=== PATIENT | female | born 1950 | race Caucasian/White ===

== ENCOUNTER 2024-05-29 08:34 | Outpatient (CLI) | payer MEDICARE, SELFPAY ==
--- NOTE | ~2024-05-29 | MM_ITS ---
EXAMINATION: MM screening adiel BI w unique HISTORY: Screening mammogram TECHNIQUE: Craniocaudal and mediolateral oblique 3-D tomosynthesis images were obtained and synthetic 2-D images were generated. CAD analysis was submitted and interpreted. COMPARISON: No prior mammogram is available for comparison at this institution. BREAST PARENCHYMAL COMPOSITION:Not Dense. There are scattered areas of fibroglandular density. FINDINGS: There is a subtle asymmetric density at the outer left breast. No parenchymal abnormality t he right breast. No suspicious calcifications. IMPRESSION: Subtle asymmetry density outer left breast. Spot compression views and possibly ultrasound are recom mended for further evaluation. BI-RADS Category 0: Incomplete: Needs additional imaging evaluation. Reviewed, dictated and finalized at location . CTOR OF TRANSPORTATION IMPRESSION: Subtle asymmetry density outer left breast. Spot compression views and possibl y ultrasound are recommended for further evaluation. BI-RADS Category 0: Incomplete: Needs additional imaging evaluation.
--- OUTSIDE RECORDS SUMMARY | 2024-05-29 08:56 | XMS_ITS | Clinical Summary ---
Author Organization [facility] Address [address] [place] [id number] Care Team Providers Care Sound Effects Technician Name Role Phone Unavailable Primary Care Provider Unavailabl e Social History Tobacco Use Types Packs/Day Years Used Date Smoking Tobacco: Never Assessed Comments Unknown Sex and Gender Information Value Date Recorded Sex Assigned at Not on file Legal Sex Female 6:55 PM CDT Gender Identity Not on file Sexual Orientation Not on file Plan of Treatment Health Maintenance Due Date Last Done Comments Colorectal Cancer Screening Colonoscopy (10 Years) 1952 Hepatitis C 1970 DTaP, Tdap and Td Vaccines ( 1 - Tdap) 09/21/1971 Mammogram Screening 1992 Zoster Vaccines (1 of 2) 2002 Dexa Scan (General) 2017 Pneumococcal Vaccine: 65+ Ye ars (1 of 1 - PCV) 2017 COVID-19 Vaccine (2023-2 5 season) 2023 Influenza Adult (#1) 2023 RSV Immunization or 60+ Years (1 - 1-dose 75+ series) 09/21/2027 Meningococcal B Vaccine Aged Out No l onger eligible based on patient's age to complete this topic Meningococcal Vaccine Aged Out No jelani pancho eligible based on patient's age to complete this topic RSV Immunizations Under 20 Months Aged Out No longer eligible based on patient's age to complete this topic
--- OUTSIDE RECORDS SUMMARY | 2024-05-29 08:56 | XMS_ITS | Data Portability ---
Author Organization [facility], Main Office Address [address] [place] [address] Care Team Providers Care Health Administration Teacher Name Role Phone TESS ADAMS Primary Care Provider TESS ADAMS Referring Provider MESSI BOYCE Orthopedic Surgeon Assessment Encounter Date Assessment Date Assessment LastModified by Organization Details LastModified Time 01/19/2023 01/19/2023 HPI: Patient returns. She is here for a 5 year routine x-ray surveillance of both her knees. We did her right total knee in 2017 and the left in 2016 both knees are doing very well for her. She is having no complaints of pain in either knee. Physical exam: 72-year-old female alert pleasant. She has no effusion in either knee. Range of motion is from 0-140 degrees bilaterally. She has excellent stability in both flexion extension of both knees. No increased swelling in either lower extremity. Impression: Patient is doing very well with her total knee arthroplasties. She has excellent range of motion and stability in both knees. She is very happy with the results. We will see her back in 5 years for routine x-ray surveillance or sooner if she has problems. Not available 01/19/2023 12:38:45 05/16/2023 05/16/2023 HPI: Patient returns. Her right hip is bothering her a lot more at this point. She has been on meloxicam which she does not feel helps. She has pain in the groin of the right hip with activities as well as weight-bearing and walking. She also gets pain that radiates to the right buttocks. Typically this pain occurs when she is moving the hip. She had x-rays done from last November which showed moderate to moderately severe type 2 osteoarthritis. Physical exam: 72-year-old female she is 5 ft 3 195 lb BMI is 34.5. She walks with a minimal limp. She has flexion of the right hip to 110 with mild groin pain. External rotation is to 30 and internal rotation is to 0. She has pzov-jv-lgejbms e pain in the groin as well as in the right buttocks with internal rotation. Stinchfield maneuver is very painful in the groin as well as right buttock area. She has no numbness or tingling going down the legs. No swelling in either lower extremity. Impression: Patient appears to be having symptoms were emanating from her arthritic right hip. I think the buttock pain is referred for pain from the hip given the fact that it is reproduced with provocative maneuvers of the hip. She is wanting to discuss surgical options with the hip. We will work on referring her for surgical consultation. I will see her back as needed. 20 minutes was spent in treatment patient more than half this lwjh-jr-hkmg conversation. I did discuss with her using a cane if her symptoms become worse and she does have a cane at home. She does not feel the meloxicam solving so she is going to just take oqow-ruy-qcdebu r Motrin 800 mg 2 or 3 times a day which seems to work better for her. She also uses Tylenol and tramadol p.r.n. as well. Not available 05/16/2023 14:17:29 Plan of Treatment Reminders Order Date Submit Date Provider Last Modified By Organization Details Last Modified Time Details Appointments Any 15 2024 10:00A M Tess Adams MD Not available Not available Not available Lab CMP, serum or plasma 2023 [facility] (Lab), [address] [place], [address], 01/14/2024 19:47:39 lipid panel, serum 2023 024 [facility] (Lab), [address] [place], [address], 01/14/2024 19:47:42 CBC w/ auto diff 2023 024 [facility] (Lab), [address] [place], [address], 01/14/2024 19:08:07 vitamin D, 25-hydrox y, total, serum 2023 024 [facility] (Lab), [address] [place], [address], 01/14/2024 20:48:26 Referral None recorded. Procedures None recorded. Surgeries None recorded. Imaging MAMMO, screening , digital, bilateral - Please call patient to schedule. Due on or around 4 2023 [email or web address] [facility], [address], [place], [address], 02/18/2024 18:58:38 bone density - Please call patient to schedule. 2023 024 [email or web address] [facility], [address], [place], [address], 02/13/2024 08:37:22 XR, knee 2022 023 [email or web address] [facility] [place], [facility], [place], [address], 01/20/2023 12:49:57 Medication Orders diclofena c sodium 75 mg tablet,de layed release 2023 024 [facility] #[id number], [address], [place], [place], [id number], 01/14/2024 09:17:59 cephalexi n 500 mg capsule 2023 024 [facility] #[id number], [address], [place], [place], [id number], 01/14/2024 09:22:23 tramadol 50 mg tablet 2023 024 eda wise [facility] #[id number], [address], [place], [place], [id number], 09/13/2023 10:59:15 lisinopri l 20 mg tablet 2023 024 [facility] #[id number], [address], [place], [place], [id number], 05/15/2023 10:43:56 Patient TargetsNo targets recorded. Patient Instructions Encounter Date Encounter Id Patient Instructions Last Modified By Organization Details Last Modified Time 01/14/2024 [id number] dementia rating scale-2* Not available 01/14/2024 11:29:37 depression screening* Not available 01/14/2024 17:17:33 alcohol misuse* Not available 01/14/2024 17:17:32 Timed Up and Go test (TUG)* Not available 01/14/2024 17:17:33 multi-dimensiona l health assessment questionnaire* Not available 01/14/2024 17:17:33 Personalized [facility] lt Plan and Screening Recommendations Advance Directives - Do you have one? Yes Advance Directives - Do we have your advance directive on file in your health record? No, please bring in a copy at your earliest convenience Primary Prevention/Interven tion (prevents or decreases the chance of common diseases from occurring) Smoking Risk: Non Smoker Alcohol Misuse Screening: Negative Weight: Appropriate Overwei ght continue your current weight loss efforts try to lose 5% of your body weight try to lose 10% of your body weight try to lose 15% of your body weight Physical activity: Need more exercise/physical activity minimum of 10-20 minutes of activity that causes mild breathlessness/day Nutrition: Good Average Fall Risk (screened today): Low Vaccines Pneumococcal: Ordered Recommended today Recommended today, but you have declined No further needed Influenza: Your next one in the fall of this year Chronic Disease Risks Stroke: Low Risk I have no recommendations Heart Attack: Low risk I have no recommendations Clogging of the Arteries: Low risk I have no recommendations Diabetes: Low Risk I have no recommendations Secondary Prevention/Interven tion (detects treatable diseases before they may cause symptoms, disability, or ) Breast Cancer Screening with mammogram: Cervical/Uterine/Ov eunice Cancer Screening: Osteoporosis Screening: No screening necessary Date Screening Last Performed: 08/2021 Colon Cancer Screening: Colonoscopy Fecal Occult Blood Cologuard (DNA stool test) No screening necessary Date Screening Last Performed: 01/2022 Eye Disease Screening: No Eye exam necessary Dementia Risk: Low I have no recommendations Depression Screening: Negative [email or web address] Not available 01/14/2024 11:04:48 Reason for Referral None Reported. Results Created Date Observation Date Name Description Value Unit Range Abnormal Flag Note LastModifiedBy Organization Detail LastModifiedTime 01/23/2001/22/2023 CBC/C OMPLE TE BLD COUNT W/DIF F white blood cells 6.1 x10'3 /uL 4.2-10 .8 Not Available [facility] (Lab) [address] [place], [address], 01/22/2023 15:58:48 01/23/2001/22/2023 CBC/C OMPLE TE BLD COUNT W/DIF F red blood cells 4.60 x10'6 /uL 3.80-5 .20 Not Available [facility] (Lab) [address] [place], [address], 01/22/2023 15:58:48 01/23/2001/22/2023 CBC/C OMPLE TE BLD COUNT W/DIF F hemoglobin 13.9 g/dL 12.0-1 5.6 Not Available [facility] (Lab) [address] [place], [address], 01/22/2023 15:58:48 01/23/2001/22/2023 CBC/C OMPLE TE BLD COUNT W/DIF F hematocrit 43.1 % 35.7-4 5.7 Not Available [facility] (Lab) [address] [place], [address], 01/22/2023 15:58:48 01/23/2001/22/2023 CBC/C OMPLE TE BLD COUNT W/DIF F mean red cell volume 93.7 fL 82.0-9 9.0 Not Available [facility] (Lab) [address] [place], [address], 01/22/2023 15:58:48 01/23/2001/22/2023 CBC/C OMPLE TE BLD COUNT W/DIF F mean red cell hemoglobin 30.2 pg 27.0-3 3.0 Not Available [facility] (Lab) [address] [place], [address], 01/22/2023 15:58:48 01/23/2001/22/2023 CBC/C OMPLE TE BLD COUNT W/DIF F mean RBC HGB concentratio n 32.3 g/dL 31.0-3 6.0 Not Available [facility] (Lab) [address] [place], [address], 01/22/2023 15:58:48 01/23/2001/22/2023 CBC/C OMPLE TE BLD COUNT W/DIF F red cell distribution width 13.6 % 11.8-1 5.5 Not Available [facility] (Lab) [address] [place], [address], 01/22/2023 15:58:48 01/23/2001/22/2023 CBC/C OMPLE TE BLD COUNT W/DIF F platelets 194 x10'3 /uL 150-40 0 Not Available [facility] (Lab) [address] [place], [address], 01/22/2023 15:58:48 01/23/2001/22/2023 CBC/C OMPLE TE BLD COUNT W/DIF F mean platelet volume 12.5 fL 9.0-12 .4 high Not Available [facility] (Lab) [address] [place], [address], 01/22/2023 15:58:48 01/23/2001/22/2023 CBC/C OMPLE TE BLD COUNT W/DIF F neutrophils 66.7 % 39.0-7 2.0 Not Available [facility] (Lab) [address] [place], [address], 01/22/2023 15:58:48 01/23/2001/22/2023 CBC/C OMPLE TE BLD COUNT W/DIF F lymphocytes 18.8 % 16.0-4 7.0 Not Available [facility] (Lab) [address] [place], [address], 01/22/2023 15:58:48 01/23/2001/22/2023 CBC/C OMPLE TE BLD COUNT W/DIF F monocytes 10.3 % 5.0-12 .0 Not Available [facility] (Lab) [address] [place], [address], 01/22/2023 15:58:48 01/23/2001/22/2023 CBC/C OMPLE TE BLD COUNT W/DIF F eosinophils 3.6 % 1.0-7. 0 Not Available [facility] (Lab) [address] [place], [address], 01/22/2023 15:58:48 01/23/2001/22/2023 CBC/C OMPLE TE BLD COUNT W/DIF F basophils 0.3 % 0.0-2. 0 Not Available [facility] (Lab) [address] [place], [address], 01/22/2023 15:58:48 01/23/2001/22/2023 CBC/C OMPLE TE BLD COUNT W/DIF F immature granulocytes 0.3 % 0.00-0 .50 Not Available [facility] (Lab) [address] [place], [address], 01/22/2023 15:58:48 01/23/20 23 01/22/2023 CBC/C OMPLE TE BLD COUNT W/DIF F neutrophils, absolute count 4.09 x10'3 /uL 1.5-8. 0 Not Available [facility] (Lab) [address] [place], [address], 01/22/2023 15:58:48 01/23/20 23 01/22/2023 CBC/C OMPLE TE BLD COUNT W/DIF F lymphocytes, absolute count 1.15 x10'3 /uL 1.07-3 .43 Not Available [facility] (Lab) [address] [place], [address], 01/22/2023 15:58:48 01/23/2001/22/2023 CBC/C OMPLE TE BLD COUNT W/DIF F monocytes, absolute count 0.63 x10'3 /uL 0.29-0 .99 Not Available [facility] (Lab) [address] [place], [address], 01/22/2023 15:58:48 01/23/20 23 01/22/2023 CBC/C OMPLE TE BLD COUNT W/DIF F eosinophils, absolute count 0.22 x10'3 /uL 0.02-0 .53 Not Available [facility] (Lab) [address] [place], [address], 01/22/2023 15:58:48 01/23/20 23 01/22/2023 CBC/C OMPLE TE BLD COUNT W/DIF F basophils, absolute count 0.02 x10'3 /uL 0.01-0 .08 Not Available [facility] (Lab) [address] [place], [address], 01/22/2023 15:58:48 01/23/20 23 01/22/2023 CBC/C OMPLE TE BLD COUNT W/DIF F immature granulocytes ,absolute 0.02 x10'3 /uL 0.00-0 .05 Not Available [facility] (Lab) [address] [place], [address], 01/22/2023 15:58:48 01/23/20 23 01/22/2023 CBC/C OMPLE TE BLD COUNT W/DIF F nucleated red blood cells 0.0 % -0 Not Available [facility] (Lab) [address] [place], [address], 01/22/2023 15:58:48 01/23/2001/22/2023 CBC/C OMPLE TE BLD COUNT W/DIF F NRBC# 0.00 x10'3 /uL Not Available [facility] (Lab) [address] [place], [address], 01/22/2023 15:58:48 01/23/2001/22/2023 VITAM IN D 25-HY DROXY [id number] 31.3 NG/mL 30-100 Vitam in D Statu s: Defic ient: <20 ng/mL Insuf ficie nt: 20-29 ng/mL Suffi cient : 30-10 0 ng/mL Not Available [facility] (Lab) [address] [place], [address], 01/22/2023 16:52:18 01/23/2001/22/2023 COMPR EHENS NIKA METAB OLIC PANEL sodium 140 mmol/ L 137-14 5 Not Available [facility] (Lab) [address] [place], [address], 01/22/2023 16:53:45 01/23/2001/22/2023 COMPR EHENS NIKA METAB OLIC PANEL potassium 4.0 mmol/ L 3.5-5. 1 Not Available [facility] (Lab) [address] [place], [address], 01/22/2023 16:53:45 01/23/20 23 01/22/2023 COMPR EHENS NIKA METAB OLIC PANEL chloride 106 mmol/ L 98-107 Not Available [facility] (Lab) [address] [place], [address], 01/22/2023 16:53:45 01/23/20 23 01/22/2023 COMPR EHENS NIKA METAB OLIC PANEL carbon dioxide 31 mmol/ L 22-30 high Not Available [facility] (Lab) [address] [place], [address], 01/22/2023 16:53:45 01/23/20 23 01/22/2023 COMPR EHENS NIKA METAB OLIC PANEL anion gap 7.0 mmol/ L 14-22 low Not Available [facility] (Lab) [address] [place], [address], 01/22/2023 16:53:45 01/23/2001/22/2023 COMPR EHENS NIKA METAB OLIC PANEL glucose 101 mg/dL 70-99 high Not Available [facility] (Lab) [address] [place], [address], 01/22/2023 16:53:45 01/23/20 23 01/22/2023 COMPR EHENS NIKA METAB OLIC PANEL BUN 13 mg/dL 8-19 Not Available [facility] (Lab) [address] [place], [address], 01/22/2023 16:53:45 01/23/20 23 01/22/2023 COMPR EHENS NIKA METAB OLIC PANEL creatinine 0.60 mg/dL 0.66-1 .25 low Not Available [facility] (Lab) [address] [place], [address], 01/22/2023 16:53:45 01/23/20 23 01/22/2023 COMPR EHENS NIKA METAB OLIC PANEL GFR >60 Refer ence Range : Prospect ge GFR Healt hy Adult : >60 mL/mi n/1.7 3 m2 Chron ic Kidne y Disea se: 15-60 mL/mi n/1.7 3 m2 Kidne y Failu re: <15/m L/min /1.73 m2 www.n iddk. nih.g ov The MDRD study equat ion has not been valid ated in child brandy <18 years of age; pregn ant women ; the elder ly >85 years of age; or in some racia l or ethni c subgr oups, such as Hispa nics. Outsi de the valid ated steve eters , estim ated GFR is less accur ate, requi ring clini adonis judgm ent on a case- by-ca se basis . Clini adonis inter preta tion for other races and ages must be made by the clini julio c. The MDRD study equat ion has not been valid ated for the evalu ation of serum creat inine relat ed to nutri luciana l statu s or medic ation usage . For perso ns <18 years of age, a pedia tric GFR calcu lator is avail able on the [facility] websi te: https ://cinda w.kellie warreny.o rg/pr ofess ional s/kdo qi/gf r_cal culat or Not Available [facility] (Lab) [address] [place], [address], 01/22/2023 16:53:45 01/23/20 23 01/22/2023 COMPR EHENS NIKA METAB OLIC PANEL alkaline phosphatase 100 U/L 38-126 Not Available [facility] (Lab) [address] [place], [address], 01/22/2023 16:53:45 01/23/20 23 01/22/2023 COMPR EHENS NIKA METAB OLIC PANEL alanine aminotransfe rase 24 U/L 0-35 Not Available [facility] (Lab) [address] [place], [address], 01/22/2023 16:53:45 01/23/20 23 01/22/2023 COMPR EHENS NIKA METAB OLIC PANEL aspartate aminotransfe rase 22 U/L 15-37 Not Available [facility] (Lab) [address] [place], [address], 01/22/2023 16:53:45 01/23/20 23 01/22/2023 COMPR EHENS NIKA METAB OLIC PANEL bilirubin, total 0.40 mg/dL 0.20-1 .30 Not Available [facility] (Lab) [address] [place], [address], 01/22/2023 16:53:45 01/23/20 23 01/22/2023 COMPR EHENS NIKA METAB OLIC PANEL calcium 8.8 mg/dL 8.4-10 .2 Not Available [facility] (Lab) [address] [place], [address], 01/22/2023 16:53:45 01/23/20 23 01/22/2023 COMPR EHENS NIKA METAB OLIC PANEL total protein 6.1 g/dL 6.3-8. 2 low Not Available [facility] (Lab) [address] [place], [address], 01/22/2023 16:53:45 01/23/20 23 01/22/2023 COMPR EHENS NIKA METAB OLIC PANEL albumin 3.3 g/dL 3.0-4. 4 Not Available [facility] (Lab) [address] [place], [address], 01/22/2023 16:53:45 01/23/20 23 01/22/2023 COMPR EHENS NIKA METAB OLIC PANEL globulin 2.8 g/dL 2.6-4. 2 Not Available [facility] (Lab) [address] [place], [address], 01/22/2023 16:53:45 01/23/20 23 01/22/2023 COMPR EHENS NIKA METAB OLIC PANEL A/G ratio 1.2 ratio 1.0-2. 0 Not Available [facility] (Lab) [address] [place], [address], 01/22/2023 16:53:45 01/23/20 23 01/22/2023 LIPID PANEL cholesterol 145 mg/dL 140-19 9 [facility] RUDOLPH NSUS RECOM MENDA TION FOR LOYDA STERO L: ADULT CHILD LOW RISK: <200 <170 BORDE RLINE : <200- 239 ----- HIGH RISK: >240 >200 Not Available [facility] (Lab) [address] [place], [address], 01/22/2023 16:53:49 01/23/2001/22/2023 LIPID PANEL triglyceride s 113 mg/dL 0-150 NIH RUDOLPH NSUS REPOR T RECOM MENDA TION FOR TRIGL YCERI FERNIE: ADULT CHILD LOW RISK: <150 ----- BODER LINE: 150-1 99 ----- HIGH RISK: >200 ----- Not Available [facility] (Lab) [address] [place], [address], 01/22/2023 16:53:49 01/23/20 23 01/22/2023 LIPID PANEL HDL cholesterol 37 mg/dL 40- low Not Available [facility] (Lab) [address] [place], [address], 01/22/2023 16:53:49 01/23/20 23 01/22/2023 LIPID PANEL LDL cholesterol, calculated 85 mg/dL 0-130 NIH RUDOLPH NSUS REPOR T RECOM MENDA TIONS FOR LDL: ADULT CHILD LOW RISK <130 <110 (OPTI MAL LDL) <100 ----- BORDE RLINE : 130-1 59 ----- HIGH RISK: >160 >130 A TRIGL YCERI DE RESUL T >400 INVAL IDATE S THE CALCU LATIO N FOR LDL FRACT IONAT ION - THE LDL RESUL T WILL NOT BE REPOR VISHAL. Not Available [facility] (Lab) [address] [place], [address], 01/22/2023 16:53:49 07/12/19 24 07/12/2023 C REACT NIKA PROTE IN,UL TRA SENS C-reactive protein 0.17 mg/dL 0.0-0. 5 Not Available [facility] (Lab) [address] [place], [address], 07/12/2023 11:38:16 07/12/19 24 07/12/2023 RHEUM ATOID FACTO R rf <8.6 IU/mL 0.0-11 .9 Not Available [facility] (Lab) [address] [place], [address], 07/12/2023 11:38:22 07/12/19 24 07/12/2023 CBC/C OMPLE TE BLD COUNT W/DIF F white blood cells 5.5 x10'3 /uL 4.2-10 .8 Not Available [facility] (Lab) [address] [place], [address], 07/12/2023 12:14:08 07/12/19 24 07/12/2023 CBC/C OMPLE TE BLD COUNT W/DIF F red blood cells 4.34 x10'6 /uL 3.80-5 .20 Not Available [facility] (Lab) [address] [place], [address], 07/12/2023 12:14:08 07/12/19 24 07/12/2023 CBC/C OMPLE TE BLD COUNT W/DIF F hemoglobin 13.2 g/dL 12.0-1 5.6 Not Available [facility] (Lab) [address] [place], [address], 07/12/2023 12:14:08 07/12/19 24 07/12/2023 CBC/C OMPLE TE BLD COUNT W/DIF F hematocrit 40.5 % 35.7-4 5.7 Not Available [facility] (Lab) [address] [place], [address], 07/12/2023 12:14:08 07/12/19 24 07/12/2023 CBC/C OMPLE TE BLD COUNT W/DIF F mean red cell volume 93.3 fL 82.0-9 9.0 Not Available [facility] (Lab) [address] [place], [address], 07/12/2023 12:14:08 07/12/19 24 07/12/2023 CBC/C OMPLE TE BLD COUNT W/DIF F mean red cell hemoglobin 30.4 pg 27.0-3 3.0 Not Available [facility] (Lab) [address] [place], [address], 07/12/2023 12:14:08 07/12/19 24 07/12/2023 CBC/C OMPLE TE BLD COUNT W/DIF F mean RBC HGB concentratio n 32.6 g/dL 31.0-3 6.0 Not Available [facility] (Lab) [address] [place], [address], 07/12/2023 12:14:08 07/12/19 24 07/12/2023 CBC/C OMPLE TE BLD COUNT W/DIF F red cell distribution width 13.6 % 11.8-1 5.5 Not Available [facility] (Lab) [address] [place], [address], 07/12/2023 12:14:08 07/12/19 24 07/12/2023 CBC/C OMPLE TE BLD COUNT W/DIF F platelets 178 x10'3 /uL 150-40 0 Not Available [facility] (Lab) [address] [place], [address], 07/12/2023 12:14:08 07/12/19 24 07/12/2023 CBC/C OMPLE TE BLD COUNT W/DIF F mean platelet volume 12.4 fL 9.0-12 .4 Not Available [facility] (Lab) [address] [place], [address], 07/12/2023 12:14:08 07/12/19 24 07/12/2023 CBC/C OMPLE TE BLD COUNT W/DIF F neutrophils 60.8 % 39.0-7 2.0 Not Available [facility] (Lab) [address] [place], [address], 07/12/2023 12:14:08 07/12/19 24 07/12/2023 CBC/C OMPLE TE BLD COUNT W/DIF F lymphocytes 21.4 % 16.0-4 7.0 Not Available [facility] (Lab) [address] [place], [address], 07/12/2023 12:14:08 07/12/19 24 07/12/2023 CBC/C OMPLE TE BLD COUNT W/DIF F monocytes 11.0 % 5.0-12 .0 Not Available [facility] (Lab) [address] [place], [address], 07/12/2023 12:14:08 07/12/19 24 07/12/2023 CBC/C OMPLE TE BLD COUNT W/DIF F eosinophils 6.2 % 1.0-7. 0 Not Available [facility] (Lab) [address] [place], [address], 07/12/2023 12:14:08 07/12/19 24 07/12/2023 CBC/C OMPLE TE BLD COUNT W/DIF F basophils 0.4 % 0.0-2. 0 Not Available [facility] (Lab) [address] [place], [address], 07/12/2023 12:14:08 07/12/19 24 07/12/2023 CBC/C OMPLE TE BLD COUNT W/DIF F immature granulocytes 0.2 % 0.00-0 .50 Not Available [facility] (Lab) [address] [place], [address], 07/12/2023 12:14:08 07/12/19 24 07/12/2023 CBC/C OMPLE TE BLD COUNT W/DIF F neutrophils, absolute count 3.32 x10'3 /uL 1.5-8. 0 Not Available [facility] (Lab) [address] [place], [address], 07/12/2023 12:14:08 07/12/19 24 07/12/2023 CBC/C OMPLE TE BLD COUNT W/DIF F lymphocytes, absolute count 1.17 x10'3 /uL 1.07-3 .43 Not Available [facility] (Lab) [address] [place], [address], 07/12/2023 12:14:08 07/12/19 24 07/12/2023 CBC/C OMPLE TE BLD COUNT W/DIF F monocytes, absolute count 0.60 x10'3 /uL 0.29-0 .99 Not Available [facility] (Lab) [address] [place], [address], 07/12/2023 12:14:08 07/12/19 24 07/12/2023 CBC/C OMPLE TE BLD COUNT W/DIF F eosinophils, absolute count 0.34 x10'3 /uL 0.02-0 .53 Not Available [facility] (Lab) [address] [place], [address], 07/12/2023 12:14:08 07/12/19 24 07/12/2023 CBC/C OMPLE TE BLD COUNT W/DIF F basophils, absolute count 0.02 x10'3 /uL 0.01-0 .08 Not Available [facility] (Lab) [address] [place], [address], 07/12/2023 12:14:08 07/12/19 24 07/12/2023 CBC/C OMPLE TE BLD COUNT W/DIF F immature granulocytes ,absolute 0.01 x10'3 /uL 0.00-0 .05 Not Available [facility] (Lab) [address] [place], [address], 07/12/2023 12:14:08 07/12/19 24 07/12/2023 CBC/C OMPLE TE BLD COUNT W/DIF F nucleated red blood cells 0.0 % -0 Not Available [facility] (Lab) [address] [place], [address], 07/12/2023 12:14:08 07/12/19 24 07/12/2023 CBC/C OMPLE TE BLD COUNT W/DIF F NRBC# 0.00 x10'3 /uL Not Available [facility] (Lab) [address] [place], [address], 07/12/2023 12:14:08 07/12/19 24 07/12/2023 SEDIM ENTAT ION RATE erythrocyte sedimentatio n rate 12 mm/HR 0-20 Not Available [facility] (Lab) [address] [place], [address], 07/12/2023 13:16:10 07/12/19 24 07/13/2023 ANTI- CCP ANTIB ODIES IGG/I GA ccp antibodies IgG/IgA 6 units 0-19 Negat nika <20 Weak posit nika 20 - 39 Moder ate posit nika 40 - 59 Stron g posit nika >59 Perfo rmed at: [facility] [address] [facility], [place] [address] [address]: Zeus altamirano PhD, Phone : [phone] Not Available [facility] (Lab) [address] [place], [address], 07/13/2023 14:13:42 07/12/19 24 07/16/2023 VITALIY BY IFA RFX TITER /NELL MANDO antinuclear antibodies, ifa NEGATI VE Negat nika <1:80 Borde rline 1:80 Posit nika >1:80 ICAP nomnaseem tobias re: AC-0 For more infor matmian n about Hep-2 cell patte rns use ANApa ttern s.org , the offic ial websi te for the Inter natio nal Conse nsus on Antin uclea r Antib darinel (VITALIY) Patte rns (ICAP ). . Speck led cytop lasmi c fluor escen ce is prese nt. The antib odies noted in this patte rn may be assoc iated with, but not restr icted to, prima ry bilia ry cirrh osis (PBC) , polym yosit is and derma tomyo sitis (PM/D M), and/o r syste carin lupus eryth emato augustine (SLE) . Perfo rmed at: [facility] [address], [place] [address] Lab Direc tor: Zues altamirano PhD, Phone : [phone] Not Available [facility] (Lab) [address] [place], [address], 07/16/2023 08:08:58 07/12/19 24 07/23/2023 HLA B 27 DISEA SE ASSOC IATIO N hla-B27 NEGATI VE HLA-B *27 Negat nika B27 allel e inter preta tion for all loci based on IMGT/ HLA datab ase versi on . 0 This test was devel oped and its perfo rmanc e bakari cteri stics deter mined by [employer]. It has not been clear ed or appro margaret by the Food and Drug Admin istra tion. HLA Lab CLIA ID Numbe r [id number] THis test was perfo rmed using Polym erase Chain React ion (PCR) and Seque nce Speci fic Oligo nucle otide Probe s (SSOP ) techn ique. Seque nce Based Typin g (SBT) may be used as a suppl ement al metho d when neces jose eduardo. If you have quest ions, pleas e call HLA custo kristy servi ce at [phone] or email at HLA [email or web address]. Perfo rmed at: 2Q - [facility] [place] [facility] [address] , [place] [address] 3[address] Lab Direc tor: Nida gardiner PhD, Phone : [phone] Not Available [facility] (Lab) [address] [place], [address], 07/23/2023 11:10:19 01/14/2001/14/2024 CBC/C OMPLE TE BLD COUNT W/DIF F white blood cells 6.2 x10'3 /uL 4.2-10 .8 Not Available [facility] (Lab) [address] [place], [address], 01/14/2024 19:08:07 01/14/2001/14/2024 CBC/C OMPLE TE BLD COUNT W/DIF F red blood cells 4.46 x10'6 /uL 3.80-5 .20 Not Available [facility] (Lab) [address] [place], [address], 01/14/2024 19:08:07 01/14/2001/14/2024 CBC/C OMPLE TE BLD COUNT W/DIF F hemoglobin 13.6 g/dL 12.0-1 5.6 Not Available [facility] (Lab) [address] [place], [address], 01/14/2024 19:08:07 01/14/2001/14/2024 CBC/C OMPLE TE BLD COUNT W/DIF F hematocrit 43.4 % 35.7-4 5.7 Not Available [facility] (Lab) [address] [place], [address], 01/14/2024 19:08:07 01/14/20 24 01/14/2024 CBC/C OMPLE TE BLD COUNT W/DIF F mean red cell volume 97.3 fL 82.0-9 9.0 Not Available [facility] (Lab) [address] [place], [address], 01/14/2024 19:08:07 01/14/2001/14/2024 CBC/C OMPLE TE BLD COUNT W/DIF F mean red cell hemoglobin 30.5 pg 27.0-3 3.0 Not Available [facility] (Lab) [address] [place], [address], 01/14/2024 19:08:07 01/14/2001/14/2024 CBC/C OMPLE TE BLD COUNT W/DIF F mean RBC HGB concentratio n 31.3 g/dL 31.0-3 6.0 Not Available [facility] (Lab) [address] [place], [address], 01/14/2024 19:08:07 01/14/2001/14/2024 CBC/C OMPLE TE BLD COUNT W/DIF F red cell distribution width 13.6 % 11.8-1 5.5 Not Available [facility] (Lab) [address] [place], [address], 01/14/2024 19:08:07 01/14/20 24 01/14/2024 CBC/C OMPLE TE BLD COUNT W/DIF F platelets 168 x10'3 /uL 150-40 0 Not Available [facility] (Lab) [address] [place], [address], 01/14/2024 19:08:07 01/14/2001/14/2024 CBC/C OMPLE TE BLD COUNT W/DIF F mean platelet volume 12.4 fL 9.0-12 .4 Not Available [facility] (Lab) [address] [place], [address], 01/14/2024 19:08:07 01/14/20 24 01/14/2024 CBC/C OMPLE TE BLD COUNT W/DIF F neutrophils 66.4 % 39.0-7 2.0 Not Available [facility] (Lab) [address] [place], [address], 01/14/2024 19:08:07 01/14/2001/14/2024 CBC/C OMPLE TE BLD COUNT W/DIF F lymphocytes 18.8 % 16.0-4 7.0 Not Available [facility] (Lab) [address] [place], [address], 01/14/2024 19:08:07 01/14/2001/14/2024 CBC/C OMPLE TE BLD COUNT W/DIF F monocytes 10.8 % 5.0-12 .0 Not Available [facility] (Lab) [address] [place], [address], 01/14/2024 19:08:07 01/14/2001/14/2024 CBC/C OMPLE TE BLD COUNT W/DIF F eosinophils 3.4 % 1.0-7. 0 Not Available [facility] (Lab) [address] [place], [address], 01/14/2024 19:08:07 01/14/2001/14/2024 CBC/C OMPLE TE BLD COUNT W/DIF F basophils 0.3 % 0.0-2. 0 Not Available [facility] (Lab) [address] [place], [address], 01/14/2024 19:08:07 01/14/2001/14/2024 CBC/C OMPLE TE BLD COUNT W/DIF F immature granulocytes 0.3 % 0.00-0 .50 Not Available [facility] (Lab) [address] [place], [address], 01/14/2024 19:08:07 01/14/20 24 01/14/2024 CBC/C OMPLE TE BLD COUNT W/DIF F neutrophils, absolute count 4.10 x10'3 /uL 1.5-8. 0 Not Available [facility] (Lab) [address] [place], [address], 01/14/2024 19:08:07 01/14/20 24 01/14/2024 CBC/C OMPLE TE BLD COUNT W/DIF F lymphocytes, absolute count 1.16 x10'3 /uL 1.07-3 .43 Not Available [facility] (Lab) [address] [place], [address], 01/14/2024 19:08:07 01/14/2001/14/2024 CBC/C OMPLE TE BLD COUNT W/DIF F monocytes, absolute count 0.67 x10'3 /uL 0.29-0 .99 Not Available [facility] (Lab) [address] [place], [address], 01/14/2024 19:08:07 01/14/2001/14/2024 CBC/C OMPLE TE BLD COUNT W/DIF F eosinophils, absolute count 0.21 x10'3 /uL 0.02-0 .53 Not Available [facility] (Lab) [address] [place], [address], 01/14/2024 19:08:07 01/14/2001/14/2024 CBC/C OMPLE TE BLD COUNT W/DIF F basophils, absolute count 0.02 x10'3 /uL 0.01-0 .08 Not Available [facility] (Lab) [address] [place], [address], 01/14/2024 19:08:07 01/14/2001/14/2024 CBC/C OMPLE TE BLD COUNT W/DIF F immature granulocytes ,absolute 0.02 x10'3 /uL 0.00-0 .05 Not Available [facility] (Lab) [address] [place], [address], 01/14/2024 19:08:07 01/14/20 24 01/14/2024 CBC/C OMPLE TE BLD COUNT W/DIF F nucleated red blood cells 0.0 % -0 Not Available [facility] (Lab) [address] [place], [address], 01/14/2024 19:08:07 01/14/20 24 01/14/2024 CBC/C OMPLE TE BLD COUNT W/DIF F NRBC# 0.00 x10'3 /uL Not Available [facility] (Lab) [address] [place], [address], 01/14/2024 19:08:07 01/14/2001/14/2024 COMPR EHENS NIKA METAB OLIC PANEL sodium 140 mmol/ L 137-14 5 Not Available [facility] (Lab) [address] [place], [address], 01/14/2024 19:47:39 01/14/2001/14/2024 COMPR EHENS NIKA METAB OLIC PANEL potassium 3.4 mmol/ L 3.5-5. 1 low Not Available [facility] (Lab) [address] [place], [address], 01/14/2024 19:47:39 01/14/2001/14/2024 COMPR EHENS NIKA METAB OLIC PANEL chloride 104 mmol/ L 98-107 Not Available [facility] (Lab) [address] [place], [address], 01/14/2024 19:47:39 01/14/20 24 01/14/2024 COMPR EHENS NIKA METAB OLIC PANEL carbon dioxide 30 mmol/ L 22-30 Not Available [facility] (Lab) [address] [place], [address], 01/14/2024 19:47:39 01/14/20 24 01/14/2024 COMPR EHENS NIKA METAB OLIC PANEL anion gap 9.4 mmol/ L 14-22 low Not Available [facility] (Lab) [address] [place], [address], 01/14/2024 19:47:39 01/14/20 24 01/14/2024 COMPR EHENS NIKA METAB OLIC PANEL glucose 98 mg/dL 70-99 Not Available [facility] (Lab) [address] [place], [address], 01/14/2024 19:47:39 01/14/2001/14/2024 COMPR EHENS NIKA METAB OLIC PANEL BUN 12 mg/dL 8-19 Not Available [facility] (Lab) [address] [place], [address], 01/14/2024 19:47:39 01/14/2001/14/2024 COMPR EHENS NIKA METAB OLIC PANEL creatinine 0.69 mg/dL 0.66-1 .25 Not Available [facility] (Lab) [address] [place], [address], 01/14/2024 19:47:39 01/14/2001/14/2024 COMPR EHENS NIKA METAB OLIC PANEL GFR >60 Refer ence Range : Prospect ge GFR Healt hy Adult : >60 mL/mi n/1.7 3 m2 Chron ic Kidne y Disea se: 15-60 mL/mi n/1.7 3 m2 Kidne y Failu re: <15/m L/min /1.73 m2 www.n iddk. nih.g ov The MDRD study equat ion has not been valid ated in child brandy <18 years of age; pregn ant women ; the elder ly >85 years of age; or in some racia l or ethni c subgr oups, such as Hispa nics. Outsi de the valid ated steve eters , estim ated GFR is less accur ate, requi ring clini adonis judgm ent on a case- by-ca se basis . Clini adonis inter preta tion for other races and ages must be made by the clini julio c. The MDRD study equat ion has not been valid ated for the evalu ation of serum creat inine relat ed to nutri luciana l statu s or medic ation usage . For perso ns <18 years of age, a pedia tric GFR calcu lator is avail able on the [facility] websi te: https ://ww w.kid tasha.o rg/pr ofess ional s/kdo qi/gf r_cal culat or Not Available [facility] (Lab) [address] [place], [address], 01/14/2024 19:47:39 01/14/2001/14/2024 COMPR EHENS NIKA METAB OLIC PANEL alkaline phosphatase 116 U/L 38-126 Not Available [facility] (Lab) [address] [place], [address], 01/14/2024 19:47:39 01/14/2001/14/2024 COMPR EHENS NIKA METAB OLIC PANEL alanine aminotransfe rase 18 U/L 0-35 Not Available [facility] (Lab) [address] [place], [address], 01/14/2024 19:47:39 01/14/2001/14/2024 COMPR EHENS NIKA METAB OLIC PANEL aspartate aminotransfe rase 22 U/L 15-37 Not Available [facility] (Lab) [address] [place], [address], 01/14/2024 19:47:39 01/14/2001/14/2024 COMPR EHENS NIKA METAB OLIC PANEL bilirubin, total 0.60 mg/dL 0.20-1 .30 Not Available [facility] (Lab) [address] [place], [address], 01/14/2024 19:47:39 01/14/2001/14/2024 COMPR EHENS NIKA METAB OLIC PANEL calcium 9.2 mg/dL 8.4-10 .2 Not Available [facility] (Lab) [address] [place], [address], 01/14/2024 19:47:39 01/14/2001/14/2024 COMPR EHENS NIKA METAB OLIC PANEL total protein 6.0 g/dL 6.3-8. 2 low Not Available [facility] (Lab) [address] [place], [address], 01/14/2024 19:47:39 01/14/2001/14/2024 COMPR EHENS NIKA METAB OLIC PANEL albumin 3.4 g/dL 3.0-4. 4 Not Available [facility] (Lab) [address] [place], [address], 01/14/2024 19:47:39 01/14/2001/14/2024 COMPR EHENS NIKA METAB OLIC PANEL globulin 2.6 g/dL 2.6-4. 2 Not Available [facility] (Lab) [address] [place], [address], 01/14/2024 19:47:39 01/14/2001/14/2024 COMPR EHENS NIKA METAB OLIC PANEL A/G ratio 1.3 ratio 1.0-2. 0 Not Available [facility] (Lab) [address] [place], [address], 01/14/2024 19:47:39 01/14/2001/14/2024 LIPID PANEL cholesterol 133 mg/dL 140-19 9 low NIH RUDOLPH NSUS RECOM MENDA TION FOR LOYDA STERO L: ADULT CHILD LOW RISK: <200 <170 BORDE RLINE : <200- 239 ----- HIGH RISK: >240 >200 Not Available [facility] (Lab) [address] [place], [address], 01/14/2024 19:47:42 01/14/2001/14/2024 LIPID PANEL triglyceride s 88 mg/dL 0-150 NIH RUDOLPH NSUS REPOR T RECOM MENDA TION FOR TRIGL YCERI FERNIE: ADULT CHILD LOW RISK: <150 ----- BODER LINE: 150-1 99 ----- HIGH RISK: >200 ----- Not Available [facility] (Lab) [address] [place], [address], 01/14/2024 19:47:42 01/14/2001/14/2024 LIPID PANEL HDL cholesterol 38 mg/dL 40- low Not Available [facility] (Lab) [address] [place], [address], 01/14/2024 19:47:42 01/14/2001/14/2024 LIPID PANEL LDL cholesterol, calculated 77 mg/dL 0-130 NIH RUDOLPH NSUS REPOR T RECOM MENDA TIONS FOR LDL: ADULT CHILD LOW RISK <130 <110 (OPTI MAL LDL) <100 ----- BORDE RLINE : 130-1 59 ----- HIGH RISK: >160 >130 A TRIGL YCERI DE RESUL T >400 INVAL IDATE S THE CALCU LATIO N FOR LDL FRACT IONAT ION - THE LDL RESUL T WILL NOT BE REPOR VISHAL. Not Available [facility] (Lab) [address] [place], [address], 01/14/2024 19:47:42 01/14/20 24 01/14/2024 VITAM IN D 25-HY DROXY vd25oh 18.8 NG/mL 30-100 low Vitam in D Statu s: Defic ient: <20 ng/mL Insuf ficie nt: 20-29 ng/mL Suffi cient : 30-10 0 ng/mL Not Available [facility] (Lab) [address] [place], [address], 01/14/2024 19:48:39 01/06/20 23 12/13/2022 XR, hip + pelvi s, unila teral , 2 or 3 view No observ ation record ed. Not Available 2023 10:36:07 01/06/20 23 12/13/2022 XR, lumba r spine No observ ation record ed. Not Available 2023 10:36:07 01/20/20 23 XR, knee No observ ation record ed. [email or web address] [facility] [place] [address], [place], [address], 01/19/2023 12:37:47 02/10/20 23 02/09/2023 scree jin breas t jo ann, bilat [facility] [address] [place] [address] Patien t Name: DELORIS ALVARADO Access ion #: [id number] Sex: F : 1950 1 Dictat ed By: Ely Messina Attend ing Physic harinder: ALEXANDRA ADAMS ER Orderi ng Physic harinder: ALEXANDRA ADAMS ER Exam Date: 2022 10:46 AM Exam Name: MG SCRN BREAST JO ANN BILAT Admitt ing Diagno sis(es ): SCREEN ING MAMMOG ALVARO WITH TOMOSY NTHESI S: REASON FOR EXAM: SCREEN ING MAMMOG ALVARO COMPAR THOMAS: 22 TECHNI QUE: Bilate ral CC and MLO views obtain ed. Images were obtain ed using a [employer] n[employer]si s Unit. Standa rd 2D and 3D Tomosy nthesi s images were review ed. FINDIN GS: BREAST COMPOS ITION: There are scatte red areas of fibrog landul ar densit y in the bilate ral breast s. In the right breast , no asymme trical parenc hymal patter n, alphonse ectura l distor tion, pleomo rphic microc alcifi cation s or masses . In the left breast , no asymme trical parenc hymal patter n, alphonse ectura l distor tion, pleomo rphic microc alcifi cation s or masses . There is a postsu rgical scar in the left breast . IMPRES OLEGARIO: No findin gs of malign aki. Recomm end annual mammog alvaro. BIRADS : 2 - Benign Electr onical ly Signed by: Ely Messina at 2022 11:58: 26 AM Page 1 [facility] (Imaging) [address], [place], [address], 05/15/2023 10:36:07 01/31/20 24 01/31/2024 bone densi ty [facility] [address] [facility] [address], [place] [address] Patien t Name: DELORIS ALVARADO Access ion #: [id number] Sex: F : 1950 0 Dictat ed By: Marti masters Attend ing Physic harinder: ALEXANDRA ADAMS Orderi Physic harinder: ALEXANDRA ADAMS Exam Date: 2023 07:53 AM Exam Name: XR DEXA-H IPS PELVIS SPINE Admitt ing Diagno sis(es ): CLINIC AL HISTOR Y: postme nopaus al state, screen ing for osteop orosis . TECHNI QUE: The study was perfor med using a [employer]. Lumbar spine and proxim al femora l evalua tions were evalua vishal in the fronta l projec tions. COMPAR THOMAS: XR DEXA-H IPS PELVIS SPINE on DOS: 2, DEXA-H IPS, PELVIS , SPINE on DOS: 0 FINDIN GS: L1-L4 demons trates a bone minera l densit y of 1.283 g/cm2 with a T-scor e of 0.7, within normal limits . There has been a 0.2% interv al increa se in bone minera l densit y in the lumbar spine compar ed to the prior exam. Left femora l neck evalua tion demons trates a bone minera l densit y of 0.838 g/cm2 with a T-scor e of -1.4, consis tent with osteop enia. Left total proxim al femora l evalua tion demons trates a bone minera l densit y of 0.748 g/cm2 with a T-scor e of -2.1, consis tent with osteop enia. Right femora l neck evalua tion demons trates a bone minera l densit y of 0.914 g/cm2 with a T-scor e of -0.9 within normal limits . Right total proxim al femora l evalua tion demons trates a bone minera l densit y of 0.768 g/cm2 with a T-scor e of -1.9 consis tent with osteop enia. There has been a 5.7% interv al decrea se in total mean proxim al femora l bone densit y compar ed to the prior exam. Estima vishal total body fat is 44.6%. BMI is 32.8. IMPRES OLEGARIO: Page 1 [facility] [address] [place] [address] Patien t Name: DELORIS ALVARADO Access ion #: [id number] Sex: F : 1950 0 Dictat ed By: Marti masters Attend ing Physic harinder: ALFREDO MARKS Physic harinder: ALEXANDRA ADAMS Exam Date: 2023 07:53 AM Exam Name: XR DEXA-H IPS PELVIS SPINE Admitt ing Diagno sis(es ): Bone minera l densit y is consis tent with osteop enia based on lowest t-scor e as detail ed above. Electr onical ly Signed by: Marti masters at 2023 07:19: 56 AM Page 2 [email or web address] [facility] ([facility]) [address] [place], [address], 02/13/2024 08:37:21 Result Notes None recorded. Problems Name Problem SNOMED Code Status Onset Date Resolution Date Notes Provider Name and Address Organization Details Recorded Time Adult health examinati on Active 2022 Tess Adams MD [address] [place] [facility], [facility] [address], [place], [address] , [facility] [employer] [facility] 4 11:08:32 Pain in right hip joint 26789299830 9102 Active 2022 Cassie Serrano LPN null, [facility] [employer] [facility] 3 11:11:48 Pain of right knee joint 08443075309 4100 Active 2022 Kathleen Parker CNA null, [facility] [employer] [facility] 3 12:03:36 Celluliti s 494056413 Active 2023 Tess Adams MD [address] [place] [facility], [facility] [address], [place], [address] , [facility] [employer] [facility] 4 09:21:48 Radiother apy follow-up 274674303 Active Not Available [facility] 3 04:51:47 Screening for osteoporo sis Active 2021 Not Available [facility] 3 11:15:32 Screening for osteoporo sis Completed 202101/10/2022 Not Available [facility] 3 04:51:48 Knee pain Completed Not Available [facility] 3 04:51:48 Osteopeni a 810916495 Active 2021 Not Available [facility] 3 04:51:48 Vitamin D deficienc y 90978572 Active Not Available [facility] 3 04:51:48 Hypertens nika disorder 87628290 Active Not Available [facility] 3 04:51:48 Osteoarth ritis 170971809 Active Not Available [facility] 3 04:51:48 Obesity 824610798 Active Not Available [facility] 3 04:51:48 Notes:Some problems listed i n Document: #[id number] could not be added to this patient's chart. Please review this document and add these problems to the patient's chart manually as needed. Problem Notes None recorded. Procedures Surgical History Date Name Laterality Status Provider Name and Address Organization Details Recorded Time 01/14/20 24 Medicare Wellness CPT Code, subsequent completed Berenice Patel RN [place] [facility] 01/14/2024 09:26:15 01/31/20 17 Total knee arthroplasty completed Not Available [facility] 05/24/2022 04:42:59 11/02/19 16 Total knee arthroplasty completed Not Available [facility] 05/24/2022 04:42:59 Cholecystectomy completed Not Available [facility] 05/24/2022 04:42:59 Hysterectomy completed Not Available [facility] 05/24/2022 04:42:59 Breast Biopsy completed [facility] Donnel[facility] 01/19/2023 12:03:01 Imaging Results Imaging Date Name Status LastModified by Organiz ation Details LastModified Time 12/13/2022 XR, hip + pelvis, unilateral, 2 or 3 view completed Information not available 05/15/2023 10:36:07 12/13/2022 XR, lumbar spine completed Information not available 05/15/2023 10:36:07 01/19/2023 XR, knee completed [email or web address] [facility] [place] [address], [place], [address], 01/19/2023 12:37:47 02/09/2023 screening breast jo ann, bilat completed [facility] (Imaging) [address] [place], [address], 05/15/2023 10:36:07 01/31/2024 bone density completed [email or web address] [facility] (Imaging) [address] [place], [address], 02/13/2024 08:37:21 Procedure Notes None recorded. Medical Equipment None Reported. Medications Name Sig Start Date Stop Date Status Note LastModified by Organization Details LastModified Time celecoxib 200 mg capsule TK ONE C PO D 11/19 completed Not Available Not Available Not Available hydrocodone 7.5 mg-ibuprofe n 200 mg tablet 12/19 completed Not Available Not Available Not Available prednisone 10 mg tablet 11/19 completed Not Available Not Available Not Available hydrocodone 5 mg-acetamin ophen 325 mg tablet 11/19 completed Not Available Not Available Not Available meloxicam 15 mg tablet TAKE 1 TABLET BY MOUTH EVERY DAY 09/12 completed Not Available Not Available Not Available lisinopril 20 mg tablet TAKE 1 TABLET BY MOUTH EVERY DAY 2023 active SARKIS 01/13 NOV ok to rf Not Available Not Available Not Available topiramate 25 mg tablet 11/19 completed Not Available Not Available Not Available phentermine 37.5 mg tablet TK 1 T PO QD 11/19 completed Not Available Not Available Not Available tramadol 50 mg tablet TAKE 1 TABLET BY MOUTH EVERY 8 HOURS NEEDED 09/12 completed Not Available Not Available Not Available oxycodone-a cetaminophe n 5 mg-325 mg tablet 11/19 completed Not Available Not Available Not Available amoxicillin 875 mg tablet 11/19 completed Not Available Not Available Not Available aspirin 325 mg tablet,terri yed release TK 1 T PO BID WITH FOOD. DO NOT START TAKING UNTIL THE DAY AFTER THE LAST DOSE OF ENOXAPARI N 11/19 completed Not Available Not Available Not Available cephalexin 500 mg capsule TAKE 1 CAPSULE BY MOUTH EVERY 6 HOURS active Not Available Not Available No t Available lisinopril 10 mg tablet TAKE 1 TABLET BY MOUTH EVERY DAY 09/12 completed Not Available Not Available Not Available diclofenac sodium 75 mg tablet,terri yed release TAKE 1 TABLET BY MOUTH TWICE DAILY active Not Available Not Available No t Available ergocalcife rol (vitamin D2) 1,250 mcg (50,000 unit) capsule TAKE 1 CAPSULE BY MOUTH EVERY WEEK active Not Available Not Available No t Available Transderm-S helicopter specialist 1 mg over 3 days transdermal patch 11/19 completed Not Available Not Available Not Available celecoxib 100 mg capsule Take 1 capsule twice a day by oral route. 05/15 completed Not Available Not Available Not Available fluticasone propionate 50 mcg/actuati on nasal spray,suspe nsion 11/19 completed Not Available Not Available Not Available amoxicillin 875 mg-potassiu m clavulanate 125 mg tablet 12/19 completed Not Available Not Available Not Available enoxaparin 30 mg/0.3 mL subcutaneou s syringe 11/19 completed Not Available Not Available Not Available Vitamin D3 QD 08/24 completed Not Available Not Available Not Available Bystolic 10 mg tablet 1/2 tablet daily active Not Available Not Available No t Available Bystolic 5 mg tablet TK 1 T PO QD 04/23 completed Not Available Not Available Not Available Qsymia 3.75 mg-23 mg capsule, extended release TK 1 C PO QD 05/08 completed Not Available Not Available Not Available Qsymia 7.5 mg-46 mg capsule, extended release TK ONE C PO QD 11/19 completed Not Available Not Available Not Available Eliquis 2.5 mg tablet 11/19 completed Not Available Not Available Not Available Vitals Date Recorded Body height Body mass index (BMI) Body weight Provider Name and Address Organization Details Last Updated DateTime 01/19/2023 160.02 cm 36.2 kg/m2 45517 g Kathleen Parker CNA [employer] 01/19/2023 12:06:44 Date Recorded Body height Body mass index (BMI) Body weight Heart rate Oxygen saturation Oxygen saturation in Arterial blood by Pulse oximetry Body temperature Systolic blood pressure Diastolic blood pressure Provider Name and Address Organization Details Last Updated DateTime 4 160.02 cm 34.5 kg/m2 23692.5 1 g 76 /min 98 % 98 % 98.4 [degF] 140 mm[Hg] 70 mm[Hg] Suzanne Bauman CMA [employer] 4 10:22:49 Date Recorded Body height Provider Name an d Address Organization Details Last Updated DateTime 05/16/2023 160.02 cm Siri Soto Zoran [employer] 05/16/2023 13:52:57 Date Recorded Body height Body mass index (BMI) Body weight Heart rate Oxygen saturation Oxygen saturation in Arterial blood by Pulse oximetry Systolic blood pressure Diastolic blood pressure Provider Name and Address Organization Details Last Updated DateTime 4 160.02 cm 34.9 kg/m2 95852.7 g 84 /min 95 % 95 % 128 mm[Hg] 80 mm[Hg] Siri Soto Zoran [employer] 4 10:45:16 Date Recorded Body height Body mass index (BMI) Body weight Body temperature Heart rate Oxygen saturation Oxygen saturation in Arterial blood by Pulse oximetry Provider Name and Address Organization Details Last Updated DateTime 4 160.02 cm 32.4 kg/m2 57877.4 g 97 [degF] 88 /min 96 % 96 % Trinity Isaías [place] de souza [employer] 08:45:52 Date Recorded Systolic blood pressure Diastolic blood pressure Provider Name and Address Organization Details Last Updated DateTime 01/14/2024 138 mm[Hg] 86 mm[Hg] Tess Adams MD [address] [place] [facility], [facility] [address], [place], [address], [place] [employer] 01/14/2024 09:20:26 Social History Question Answer Notes LastModified by Organization Details LastModified Time Tobacco Smoking Status Never Smoker Not Available [facility] 05/24/2022 04:32:05 Do You Have An Advance Directive? No Requested Copy To Office [email or web address] Information not available 01/14/2024 What Is Your Level Of Alcohol Consumption? Occasional [id number] [id number] Information not available 05/24/2022 Are You Blind Or Do You Have Difficulty Seeing? No [email or web address] Information not available 01/14/2024 Is Blood Transfusion Acceptable In An Emergency? Yes [email or web address] Information not available 01/14/2024 What Is Your Level Of Caffeine Consumption? Moderate MIGRATION.0301 [id number] Information not available 05/24/2022 How Much Tobacco Do You Chew? None MIGRATION.0301 [id number] Information not available 05/24/2022 Are You Currently Employed? Yes [email or web address] Information not available 01/14/2024 Are You Deaf Or Do You Have Serious Difficulty Hearing? No [email or web address] Information not available 01/14/2024 What Type Of Diet Are You Following? REGULAR MIGRATION.0301 [id number] Information not available 05/24/2022 Which Illicit Or Recreational Drugs Have You Used? None MIGRATION.0301 [id number] Information not available 05/24/2022 What Is The Highest Grade Or Level Of School You Have Completed Or The Highest Degree You Have Received? 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 2 [email or web address] Information not available 01/14/2024 On Those Days That You Engage In Moderate To Strenuous Exercise, How Many Minutes, On Average, Do You Exercise? 20 [email or web address] Information not available 01/14/2024 Have There Been Any Changes To Your Family Or Social Situation? No [email or web address] Information not available 01/14/2024 What Is The Fluoride Status Of Your Home? Fluoridated [email or web address] Information not available 01/14/2024 Are There Any Guns Present In Your Home? No MIGRATION.0301 [id number] Information not available 05/24/2022 Do You Use Insect Repellent Routinely? Yes [email or web address] Information not available 01/14/2024 [email or web address] Information not available 01/14/2024 Do You Have A Medical Power Of Cobol Programmer? Yes [email or web address] Information not available 01/14/2024 What Was The Date Of Your Most Recent Tobacco Screening? 01/14/2024 [email or web address] Information not available 01/14/2024 How Many Children Do You Have? 0 [email or web address] Information not available 01/14/2024 Have You Ever Been Counseled For Unhealthy Alcohol Use? No [email or web address] Information not available 01/14/2024 Do You Have Any Pets? Yes [email or web address] Information not available 01/14/2024 What Is Your Relationship Status? Single [email or web address] Information not available 01/14/2024 Do You Use Your Seat Belt Or Car Seat Routinely? Yes [email or web address] Information not available 01/14/2024 Are You Sexually Active? Yes [email or web address] Information not available 01/14/2024 Do You Have Smoke And Carbon Monoxide Detectors In Your Home? Yes [email or web address] Information not available 01/14/2024 Are You Passively Exposed To Smoke? No [email or web address] Information not available 01/14/2024 Are There Any Smokers In Your House? No [email or web address] Information not available 01/14/2024 What Types Of Sporting Activities Do You Participate In? None [email or web address] Information not available 01/14/2024 Do You Feel Stressed (tense, Restless, Nervous, Or Anxious, Or Unable To Sleep At Night)? [id number] [email or web address] Information not available 01/14/2024 Do You Use Any Illicit Or Recreational Drugs? No [email or web address] Information not available 01/14/2024 Do You Use Sunscreen Routinely? Yes [email or web address] Information not available 01/14/2024 Has Tobacco Cessation Counseling Been Provided? No [email or web address] Information not available 01/14/2024 Have You Recently Traveled Abroad? No [email or web address] Information not available 01/14/2024 Do You Have Any Dietary Restrictions? No [email or web address] Information not available 01/14/2024 Do You Or Have You Ever Used Any Other Forms Of Tobacco Or Nicotine? No [email or web address] Information not available 01/14/2024 How Many Days In The Past Year Have You Consumed 4 Or More Drinks? 0 [email or web address] Information not available 01/14/2024 Sex: Unknown Functional Status Question Answer Note LastModified by Organizat ion Details LastModified Time Do you have difficulty walking or climbing stairs? Yes hip- pain makes difficult to climb stairs [email or web address] Information not available 01/14/2024 Do you have transportation difficulties? No [email or web address] Information not available 01/14/2024 Are you able to walk? YESWOREST [email or web address] Information not available 01/14/2024 Do you have difficulty doing errands alone? No [email or web address] Information not available 01/14/2024 Are you able to care for yourself? Yes [email or web address] Information not available 01/14/2024 Do you have difficulty dressing or bathing? No [email or web address] Information not available 01/14/2024 What is your exercise level? Occasional MIGRATION.27863 92932 Information not available 05/24/2022 Mental Status Question Answer Note LastModified by Organization D etails LastModified Time Do you have difficulty concentrating, remembering or making decisions? No [email or web address] Information no t available 01/14/2024 Family History Relationship Description Onset Age of this Age Resolved Age Notes LastModified by Organization Details LastModified Time Mother Essential hypertension MIGRATION.908 [id number] Not available 05/24/2022 04:43:04 Brother Hypertensive disorder MIGRATION.472 [id number] Not available 05/24/2022 04:43:04 Maternal Grandmother Diabetes mellitus MIGRATION.951 [id number] Not available 05/24/2022 04:43:04 Mother Hypertensive disorder [email or web address] Not available 2022 12:02:35 Medical History Condition Response ARTHRITIS Y HYPERTENSION Y Gynecological HistoryNo gynecological history recorded. Obstetrics History GPAL:G 0 P 0 0 0 0 Immunizations Vaccine Type Date Status Note Provider Nam e and Address Organization Details Recorded Time COVID-19, mRNA, LNP-S, PF, 30 mcg/0.3 mL dose 1 completed Not Available [facility] 05/24/2022 05:01:25 COVID-19, mRNA, LNP-S, PF, 30 mcg/0.3 mL dose 0 completed Not Available [facility] 05/24/2022 05:01:25 Influenza, high-dose, trivalent, PF 4 completed Not Available [facility] 05/24/2022 05:01:25 Influenza, high-dose, quadrivalent, PF 2 completed Not Available [facility] 05/24/2022 05:01:25 Influenza, high-dose, quadrivalent, PF 1 completed Not Available [facility] 05/24/2022 05:01:26 pneumococcal polysaccharide PPV23 0 completed Not Available [facility] 05/24/2022 05:01:26 Influenza, high-dose, quadrivalent, PF 0 completed Not Available [facility] 05/24/2022 05:01:26 Pneumococcal conjugate PCV 13 9 completed Not Available [facility] 05/24/2022 05:01:26 Influenza, high-dose, trivalent, PF 4 completed Tess Adams MD [address] [place] [address], [facility] [address], [place], [address], [facility] [employer] [facility] 01/14/2024 17:17:43 Past Encounters Encounter ID Performer Location Encounter Start Date Encounter Closed Date Diagnosis/Indication Diagnosis SNOMED-CT Code Diagnosis ICD10 Code Diagnosis Note [id number] [facility] [facility] [address] [place] [address] 08/18/2020 00:00:00 08/18/2020 12:59:20 [id number] [facility] [facility] [address] [place] [address] 12/23/2020 00:00:00 12/23/2020 13:43:39 [id number] [facility] [address] [facility] [place] [address] 09/06/2021 00:00:00 09/06/2021 17:03:07 [id number] [facility] [address] [place] [address] 01/10/2022 00:00:00 01/10/2022 16:01:22 [id number] [facility] [address] [facility] [place] [address] 05/09/2022 00:00:00 05/09/2022 16:51:02 [id number] Tess Adams MD [facility] [address] [facility] [place] [address] 01/05/2023 10:04:53 01/05/2023 10:45:36 Hypertensive disorder 75223299 I10 to take meds daily Osteoarthritis 565330738 M19.90 start Obesity 954184696 E66.9 advised Osteopenia 466909463 M85 .80 on otc Vitamin D deficiency 347 38058 E55.9 labs Adult heal th examination 180829167 Z00.00 - 12/20[place] [facility] [place] mauro snot want colonoscop y Screening mammography 24 939986 Z12.31 [id number] JEREMIAH Rios [facility] [place] [address] [place] [address] 01/19/2023 11:32:35 01/19/2023 13:25:02 Pain of right knee joint 7845961925 55571 M25.032 [id number] Tess Adams MD [facility] [address] [facility] [place] [address] 05/15/2023 10:16:04 05/15/2023 10:46:53 Hypertensive disorder 34299124 I10 ^ the dose Osteoarthritis 767365121 M19.90 to f/u with dr amaro, try tramadol for severe pain Obesity 208811552 E66.9 advised Osteopenia 579736968 M85 .80 on otc Vitamin D deficiency 347 40327 E55.9 ot Adult [facility] examination 028301828 Z00.00 Colonoscop y- had neg cologuard, does not want colonoscop yMammogram - 02/09/202312/2022 @work [id number] JEREMIAH Rios [facility] [place] [address] [place] [address] 05/16/2023 13:48:59 05/16/2023 14:19:36 Pain in right hip joint 5917279185 37186 M25.948 [id number] Tess Adams MD [facility] [place] [facility] [address] [facility] [place] [address] 09/13/2023 10:33:26 09/13/2023 11:18:57 Hypertensive disorder 76736273 I10 much better Osteoarthritis 583953221 M19.90 meds hel, lose more weight Obesity 870232421 E66.9 advised to watch diet Osteopenia 549267409 M85 .80 on otc Vitamin D deficiency 347 49924 E55.9 ot Adult [facility] examination 095400919 Z00.00 Colonoscop y- had neg cologuard, does not want colonoscop yMammogram - 02/09/2023 DEXA- 09/19/2021 Pneumovax- 12/24/2019 Prevnar 13- 11/19/201812/2022 @work [id number] Tess Adams MD [facility] [facility] [address] [facility] [place] [address] 01/14/2024 08:35:29 01/14/2024 09:42:47 Hypertensive disorder 21458136 I10 under control Osteoarthritis 986431201 M19.90 meds help Obesity 957844506 E66.9 advised to watch diet and lose more Osteopenia 651096149 M85 .80 on otc Vitamin D deficiency 347 44438 E55.9 ot Adult [facility] examination 268078445 Z00.00 Colonoscop y- had neg cologuard, does not want colonoscop yMammogram - 02/09/2023 DEXA- 09/19/2021 Pneumovax- 12/24/2019 Prevnar 13- 11/19/2018 Flu- 01/14/24 Administra tion of influenza vaccine 84673668 Z23 Screening mammography 24 570688 Z12.31 Postmenopausal state 764 88044 Z78.0 Cellulitis 243057104 L03 .90 warm compresses Screening for disorder 535056941 Z13.9 Health Concerns Section Related Observation LastModified by Organization Detai ls LastModified Time None Recorded Concern Status LastModified by Organization Details LastModified Time None Recorded Advance Directives Directive N: requested copy to office Payers Encounter Date Sequence Insurance Name Policy Number Policy Hillman Covered Member ID Hillman Member ID Guarantor Name 01/19/2023 1 [facility] (MEDICARE REPLACEMENT/A DVANTAGE - PPO) [id number] Deloris Alvarado [id number] Deloris Alvarado 01/19/2023 2 [place] Deloris Alvarado [id number] Deloris Alvarado 05/15/2023 1 [facility] (MEDICARE REPLACEMENT/A DVANTAGE - PPO) [id number] Deloris Alvarado [id number] Deloris Alvarado 05/16/2023 1 [facility] (MEDICARE REPLACEMENT/A DVANTAGE - PPO) [id number] Deloris Alvarado [id number] Deloris Alvarado 09/13/2023 1 [facility] (MEDICARE REPLACEMENT/A DVANTAGE - PPO) [id number] Deloris Alvarado [id number] Deloris Alvarado 01/14/2024 1 [facility] (MEDICARE REPLACEMENT/A DVANTAGE - PPO) [id number] Deloris Alvarado [id number] Deloris Alvarado Notes Date Note Type Note Provider Name and Address Organization Details Recorded Time 05/15/2023 text/html here today for routine f/u, compliant to meds, no side effects Also C/o right hip pain- Has seen Dr. Amaro in the past and was started on Meloxicam but its not helping and would like a different therapy. Insurance will not cover Celebrex.x rays showed mod to severe bilateral arthritis Had [facility] 01/2022 and was NORMAL Hypertension- b/p a little elevated, needs dose adjustmentMeds- Lisinopril 10 mg daily Obesity- watching diet, Lost 9 lbss/p both knee replacement due to arthritis Abn mammogram 07/2020, US was benign, nl mammogram 09/14, 02/15 Osteopenia- on otc, dexa 09/14 Tess Adams MD [address] [place] [facility], [place], [address], [facility] [employer] 05/15/2023 10:48:17 09/13/2023 text/html here today for routine f/u, compliant to meds, no side effects Had [facility] 01/2022 and was NORMAL Hypertension- b/p BETTERMeds- Lisinopril 20 mg daily Obesity- watching diet, Gained 2 lbss/p both knee replacement due to arthritisSeen Dr. Amaro and has been taking Diclofenac 75mg BID Hip pain- Has seen Dr. Amaro in the past and was started on Meloxicam but did not help, Is now taking Diclofenac which is helping.x rays showed mod to severe bilateral arthritis Abn mammogram 07/2020, US was benign, nl mammogram 09/14 and 02/15 Osteopenia- on otc, dexa 09/14 Tess Adams MD [address] [facility], [place], [address], [facility] [employer] [facility] 09/13/2023 11:12:50 01/14/2024 text/html She is here toda y for routine f/u, compliant to meds, no side effects PT IS FASTING she pulled hair from the chin area and now has swelling x 2 days, no fever Had [facility] 01/2022 and was NORMAL Hypertension- under controlMeds- Lisinopril 20 mg daily Medicare Wellness Exam Obesity- watching diet, Lost 14 lbs by controlling diets/p both knee replacement due to arthritisSeen Dr. Amaro and has been taking Diclofenac 75mg BID, it helps Hip pain- Has seen Dr. Amaro in the past and was started on Meloxicam but did not help, now taking Diclofenac which is helping.x rays showed mod to severe bilateral arthritis Abn mammogram 07/2020, US was benign, nl mammogram 09/14 and 02/15 Osteopenia- on otc, dexa 09/14 Vit D def- on otc Tess Adams MD [address] [place] [facility] [address], [place], [address], [facility] 01/14/2024 17:17:46 OBGyn Episode No OBEpisode recorded.
--- OUTSIDE RECORDS SUMMARY | 2024-05-29 08:56 | XMS_ITS | CONTINUITY OF CARE DOCUMENT ---
Author Name jahaira campo Address Unknown Organization [facility] Address [address] [facility] [address] [place] [address] Phone [phone] Care Team Providers Care Carpet Sewer Name Role Phone Adi Juárez MD Unavailable INSURANCE PROVIDERS Payer name Policy type / Coverage type Maxine red libertarian ID [id number] PAY [id number]
== END 2024-05-29 08:35 | disposition home or self-care (01) ==
LOC: ANHIMG 08:36
PROVIDERS: PCP Internal Medicine; Visit Provider Internal Medicine
DX: Z12.31 Encounter for screening mammogram for malignant neoplasm of breast (principal); R92.8 Other abnormal and inconclusive findings on diagnostic imaging of breast
CPT/HCPCS: 77063; 77067